=== PATIENT | male | born 1930 | race Caucasian/White ===

== ENCOUNTER 2017-02-20 13:30 | Emergency (ER) | payer MEDICARE, OTHER ==
[~2017-02-20] VITALS: Ht 185.4 cm; Wt 86.7 kg
[~2017-02-20 13:30] MED LIST: ALBU6.7H INH; ASPI325T PO; ATOR20TA PO; AZIT250T43 PO; BENZ100 PO; CARV12.52 PO; FURO20 PO; LACT PO; LISI2.5T3 PO; LORTA5 PO; MAGN500T4 PO; NIAS10004 PO; PLAV75TA PO; PRIL20CA PO; VITA200017 PO; VITA20004 PO
[2017-02-20 13:34] VITALS: BP 117/64; PULSE 79; RESP 20; TEMP 97.6; O2SAT 96
[2017-02-20] MEDS ORDERED: VITA10002 PO (13:55)
[2017-02-20] MEDS ORDERED: POTA1TAB4 PO (13:55)
[2017-02-20] MEDS ORDERED: LISI-515 PO (13:55)
[2017-02-20] MEDS ORDERED: PLAV75TA29 PO (13:55)
[2017-02-20] MEDS ORDERED: MAGN400T2 PO (13:55)
[2017-02-20] MEDS ORDERED: MAGN100T2 PO (13:55)
[2017-02-20] MEDS ORDERED: PRIL20TA2 PO (13:55)
[2017-02-20] MEDS ORDERED: POTA-163 PO (13:55)
[2017-02-20] MEDS ORDERED: ALLO300T2 PO (13:55)
[2017-02-20] MEDS ORDERED: HYDR-3516 PO (13:55)
[2017-02-20] MEDS ORDERED: ATOR20TA15 PO (13:55)
[2017-02-20] MEDS ORDERED: ASPI325T PO (13:55)
[2017-02-20] MEDS ORDERED: NIAC500T67 PO (13:55)
[2017-02-20] MEDS ORDERED: CARV12.5 PO (13:55)
[2017-02-20] MEDS ORDERED: VITA2000 PO (13:55)
[2017-02-20] MEDS ORDERED: FURO1TAB60 PO (13:55)
--- NOTE | 2017-02-20 14:01 | PD ---
HPI Chief Complaint: Musculoskeletal Complaint Time Seen by Provider: 13:45 Travel History International Travel<30 days: No Contact w/Intl Traveler<30days: No Traveled to known affect area: No History of Present Illness HPI 86-year-old male presents to the emergency room for evaluation of right scapular pain with radiation into his right shoulder and upper arm for the past 4 days. Patient states pain started after he sat on a hard chair for several hours. There is no other trauma or injury. Pain is localized to the scapula with radiation into the upper arm. It is not worse with palpation or range of motion of the right upper extremity. States the following morning his pain subsided slightly but he applied a lidocaine patch to the area and has been doing so daily since then. He has also been taking an extra aspirin every day which mildly relieved his symptoms. His pain is not severe which is why it took him several days to come in. He is prescribed hydrocodone for chronic low back pain but has not needed to take those. He denies abdominal pain, vomiting, chest pain, shortness of breath, upper extremity paresthesias. Denies history of right shoulder problems. History of cholecystectomy. PFSH Past Medical History Hx Anticoagulant Therapy: Yes Anemia: Yes Arthritis: Yes Autoimmune Disease: No Heart Rhythm Problems: Yes (hx of afib) Cancer: No Cardiac Catheterization: Yes Cardiovascular Problems: Yes High Cholesterol: Yes Chest Pain: No Congestive Heart Failure: No COPD: Yes Coronary Artery Disease: Yes Diabetes: Yes (was taking oral diabetes meds but pt's dr took him off ) Diminished Hearing: No Endocrine: Yes Gastrointestinal Disorders: Yes (HEMORRHOIDS) GERD: Yes Gout: Yes Genitourinary: Yes Hepatitis: Yes (1950'S) Herniated Disk: Yes Hypertension: Yes Immune Disorder: No Inguinal Hernia: Yes (BILATERAL) Kidney Stones: Yes Musculoskeletal: Yes Neurologic: No Psychiatric: No Reproductive: No Respiratory: Yes Myocardial Infarction: Yes (2005?) Pneumonia: Yes Renal Failure: No Shingles: Yes Sickle Cell Disease: No Sleep Apnea: No Past Surgical History Abdominal Surgery: Yes (cholecystectomy ) AICD: No Arteriovenous Shunt: No Cardiac Surgery: Yes (stents x4 2008) Cholecystectomy: Yes Coronary Stent: Yes (X4) Ear Surgery: No Endocrine Surgery: No Eye Surgery: No Genitourinary Surgery: No Gynecologic Surgery: No Insulin Pump: No Joint Replacement: No Oral Surgery: Yes (teeth extractions) Pacemaker: No Thoracic Surgery: No Tonsillectomy: Yes Other Surgery: Yes (HEMORRHOIDECTOMY) Social History Alcohol Use: Yes (RARELY) Tobacco Use: No (QUIT 1987) Substance Use: No Allergies-Medications (Allergen,Severity, Reaction): Coded Allergies: No Known Allergies (Unverified , 02/20/17) Reported Meds & Prescriptions Reported Meds & Active Scripts Active Reported Hydrocodone-Acetaminophen 5-325 mg Tab 1 Tab PO Q6H PRN K-Tab (Potassium Chloride) 20 Meq Tab 20 Meq PO 3X WEEK Potassium Chloride ER (Potassium Chloride) 20 Meq Tab 20 Meq PO DAILY Niacin (Niacinamide) 500 Mg Tablet 2,000 Mg PO DAILY Atorvastatin (Atorvastatin Calcium) 20 Mg Tab 20 Mg PO DAILY Allopurinol 300 Mg Tab 300 Mg PO DAILY Prilosec (Omeprazole Magnesium) 20 Mg Tab 1 Tab PO DAILY Magnesium Oxide 400 Mg Tab 400 Mg PO DIRECTED Plavix (Clopidogrel Bisulfate) 75 Mg Tab 75 Mg PO DAILY Vitamin B-12 (Cyanocobalamin) 1,000 Mcg Tab 1,000 Mcg PO DAILY Vitamin D3 (Cholecalciferol) 2,000 Unit Cap 2,000 Units PO DAILY Coreg (Carvedilol) 12.5 Mg Tab 12.5 Mg PO BID Aspirin 325 Mg Tab 325 Mg PO DAILY Lasix (Furosemide) 40 Mg Tab 40 Mg PO DAILY Lisinopril 20 Mg Tab 20 Mg PO DAILY Review of Systems Except as stated in HPI: all other systems reviewed are Neg Physical Exam Narrative GENERAL: Well-developed, well-nourished male in no acute distress. Afebrile. Ambulatory. SKIN: Focused skin assessment warm/dry. HEAD: Atraumatic. Normocephalic. EYES: Pupils equal and round. No scleral icterus. No injection or drainage. NECK: Trachea midline. No JVD. CARDIOVASCULAR: Regular rate and rhythm. No murmur appreciated. RESPIRATORY: No accessory muscle use. Clear to auscultation. Breath sounds equal bilaterally. GASTROINTESTINAL: Abdomen soft, non-tender, nondistended. Hepatic and splenic margins not palpable. Negative Faith sign. MUSCULOSKELETAL: No obvious deformities. No clubbing. No cyanosis. No edema. 2+ radial pulse. Radial, ulnar, and median nerves intact. Right posterior scapula nontender to palpation. Full range of motion of the right upper extremity. BACK: No CVA tenderness. No rash. No point tenderness on palpation of the spine. Data Data Last Documented VS Vital Signs Date Time Temp Pulse Resp B/P Pulse Ox O2 Delivery O2 Flow Rate FiO2 02/20/17 13:34 97.6 79 20 117/64 96 Orders Scapula (02/20/17 ) [facility] Medical Decision Making Medical Screen Exam Complete: Yes Emergency Medical Condition: Yes Medical Record Reviewed: Yes Differential Diagnosis Muscle spasm, strain, fracture, contusion, abdominal etiology unlikely, shingles Narrative Course 86-year-old male presents to the emergency room for evaluation of right scapular back pain that radiates into his right shoulder for the past 4 days. Patient denies trauma or injury. Right upper extremity is neurovascularly intact with 2+ radial pulse. Radial, ulnar, and median nerves intact. No pain with range of motion. No point tenderness to palpation of the scapula. No erythema, ecchymosis, edema, or rash noted. Patient has history of cholecystectomy and no abdominal pain, nausea, or vomiting. He is resting comfortably and in no acute distress. Lungs sounds clear and equal bilaterally. Denies chest pain or shortness of breath. Vital signs stable. Unlikely intrathoracic etiology. X-ray of the shoulder shows degenerative changes. Given patient states symptoms started after sitting for an extended period of time in a hard chair, this is likely muscular in nature. I spoke to my attending physician, Dr. Arzate, who agrees. He was reassured and told to take Tylenol for pain. Told to follow-up with a primary care physician or return for worsening symptoms. He understands and agrees to plan. Diagnosis Primary Impression: Right-sided thoracic back pain Qualified Code: M54.6 - Acute right-sided thoracic back pain Referrals: Primary Care Physician Patient Instructions: General Instructions, Shoulder Pain (ED), Thoracic Back Strain (ED) Additional Instructions: Rest and drink plenty of fluids. Take prescribed narcotic medication as directed, as needed for pain. Do not drink alcohol or drive while taking this medication. Take Tylenol as directed, as needed for pain. Apply ice to the affected area for 20 minutes at a time, as needed for pain and swelling. Follow-up with a primary care physician. Return to the emergency room for worsening symptoms. Disposition: 01 DISCHARGE HOME Condition: Stable Tracee Petersen Feb 20, 2017 14:01
--- NOTE | 2017-02-20 14:43 | RADRPT ---
EXAM DATE/TIME: 02/20/2017 14:24 [facility] COMPARISON: No previous studies available for comparison. INDICATIONS : Right shoulder pain with no known injury MEDICAL HISTORY : Diabetes mellitus type II. Myocardial infarction. Hypertension. SURGICAL HISTORY : Coronary artery stent. 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 Min imal acromial arch impingement is evident. There is no fracture. [place] is clear. Cardiac silhouette is prominent. CONCLUSION: Degenerative changes right shoulder without fracture. Seun Russell MD FACR on February 20, 2017 at 14:38 Board Certified Radiologist. This report was verified electronically.
[2017-02-20] MEDS ORDERED: BACLOFEN 10 MG TAB PO ONE (15:15)
== END 2017-02-20 15:31 | disposition home or self-care (01) ==
LOC: PHED 13:30
DX: M54.6 Pain in thoracic spine (principal); E11.9 Type 2 diabetes mellitus without complications; E78.00 Pure hypercholesterolemia, unspecified; I10 Essential (primary) hypertension; I25.10 Atherosclerotic heart disease of native coronary artery without angina pectoris; I25.2 Old myocardial infarction; I48.91 Unspecified atrial fibrillation; J44.9 Chronic obstructive pulmonary disease, unspecified; Z79.82 Long term (current) use of aspirin; Z95.5 Presence of coronary angioplasty implant and graft; Z90.49 Acquired absence of other specified parts of digestive tract
CPT/HCPCS: 73010; 99283

== ENCOUNTER 2017-04-03 15:46 | Emergency (ER) | payer MEDICARE, OTHER ==
[~2017-04-03] VITALS: Ht 185.4 cm; Wt 89.5 kg
[~2017-04-03 15:46] MED LIST changes: -ALBU6.7H INH; +ALLO300T2 PO; -ATOR20TA PO; +ATOR20TA15 PO; -AZIT250T43 PO; -BENZ100 PO; +CARV12.5 PO; -CARV12.52 PO; +FURO1TAB60 PO; -FURO20 PO; +HYDR-3516 PO; -LACT PO; +LISI-515 PO; -LISI2.5T3 PO; -LORTA5 PO; +MAGN400T2 PO; -MAGN500T4 PO; +NIAC500T67 PO; -NIAS10004 PO; -PLAV75TA PO; +PLAV75TA29 PO; +POTA-163 PO; +POTA1TAB4 PO; -PRIL20CA PO; +PRIL20TA2 PO; +VITA10002 PO; +VITA2000 PO; -VITA200017 PO; -VITA20004 PO
[2017-04-03 15:50] VITALS: BP 165/78; PULSE 67; RESP 16; TEMP 98; O2SAT 94
[2017-04-03] MEDS ORDERED: LIDOCAINE HCL 1% PF 30 ML VIAL ONE (16:40)
--- NOTE | 2017-04-03 16:55 | PD ---
HPI Chief Complaint: Musculoskeletal Complaint Time Seen by Provider: 16:31 Travel History International Travel<30 days: No Contact w/Intl Traveler<30days: No Traveled to known affect area: No History of Present Illness HPI The patient is a 86-year-old male who presents to the emergency department for right knee pain and swelling. The patient states he went to bed last night feeling well, waking this morning with some right knee swelling and pain. The pain is worse with movement and slightly alleviated at rest. The patient denies any trauma to the right knee. He does have a history of gout for which he takes allopurinol, denies any known history of pseudogout. He does take Plavix, however, denies any trauma to the right knee or history of hemarthrosis. Symptoms are mild to moderate, worse with movement, slightly alleviated at rest. He denies any redness to the right knee and denies any associated fever, chills, or sweats. PFSH Past Medical History Hx Anticoagulant Therapy: Yes Anemia: Yes Arthritis: Yes Autoimmune Disease: No Heart Rhythm Problems: Yes (hx of afib) Cancer: No Cardiac Catheterization: Yes Cardiovascular Problems: Yes High Cholesterol: Yes Chest Pain: No Congestive Heart Failure: No COPD: Yes Coronary Artery Disease: Yes Diabetes: Yes (was taking oral diabetes meds but pt's dr took him off ) Patient Takes Glucophage: No Diminished Hearing: No Endocrine: Yes Gastrointestinal Disorders: Yes (HEMORRHOIDS) GERD: Yes Gout: Yes Genitourinary: Yes Hepatitis: Yes (1949'S) Heparin Induced Thrombocytopen: No Herniated Disk: Yes Hypertension: Yes Immune Disorder: No Inguinal Hernia: Yes (BILATERAL) Implanted Vascular Access Dvce: No Kidney Stones: Yes Musculoskeletal: Yes Neurologic: No Psychiatric: No Reproductive: No Respiratory: Yes Myocardial Infarction: Yes (2004?) Pneumonia: Yes Renal Failure: No Shingles: Yes Sickle Cell Disease: No Sleep Apnea: No Past Surgical History Abdominal Surgery: Yes (cholecystectomy ) AICD: No Arteriovenous Shunt: No Cardiac Surgery: Yes (stents x4 2008) Cholecystectomy: Yes Coronary Stent: Yes (X4) Ear Surgery: No Endocrine Surgery: No Eye Surgery: No Genitourinary Surgery: No Gynecologic Surgery: No Insulin Pump: No Joint Replacement: No Neurologic Surgery: No Oral Surgery: Yes (teeth extractions) Pacemaker: No Thoracic Surgery: No Tonsillectomy: Yes Other Surgery: Yes (HEMORRHOIDECTOMY) Social History Alcohol Use: Yes (RARELY) Tobacco Use: No (QUIT 1986) Substance Use: No Allergies-Medications (Allergen,Severity, Reaction): Coded Allergies: No Known Allergies (Unverified , 02/20/17) Reported Meds & Prescriptions Reported Meds & Active Scripts Active Reported Hydrocodone-Acetaminophen 5-325 mg Tab 1 Tab PO Q6H PRN K-Tab (Potassium Chloride) 20 Meq Tab 20 Meq PO 3X WEEK Potassium Chloride ER (Potassium Chloride) 20 Meq Tab 20 Meq PO DAILY Niacin (Niacinamide) 500 Mg Tablet 2,000 Mg PO DAILY Atorvastatin (Atorvastatin Calcium) 20 Mg Tab 20 Mg PO DAILY Allopurinol 300 Mg Tab 300 Mg PO DAILY Prilosec (Omeprazole Magnesium) 20 Mg Tab 1 Tab PO DAILY Magnesium Oxide 400 Mg Tab 400 Mg PO DIRECTED Plavix (Clopidogrel Bisulfate) 75 Mg Tab 75 Mg PO DAILY Vitamin B-12 (Cyanocobalamin) 1,000 Mcg Tab 1,000 Mcg PO DAILY Vitamin D3 (Cholecalciferol) 2,000 Unit Cap 2,000 Units PO DAILY Coreg (Carvedilol) 12.5 Mg Tab 12.5 Mg PO BID Aspirin 325 Mg Tab 325 Mg PO DAILY Lasix (Furosemide) 40 Mg Tab 40 Mg PO DAILY Lisinopril 20 Mg Tab 20 Mg PO DAILY Review of Systems Except as stated in HPI: all other systems reviewed are Neg General / Constitutional: No: Fever, Chills Musculoskeletal: Positive: Edema, Pain Skin: No Rash Neurologic: Positive: Other (history of foot drop to the right leg), No: Paresthesia, Sensory Disturbance Physical Exam Narrative GENERAL: Awake, alert, pleasant 86-year-old male who appears his stated age and is in no acute respiratory distress. SKIN: Focused skin assessment warm/dry. HEAD: Atraumatic. Normocephalic. EYES: No injection or drainage. ENT: No nasal bleeding or discharge. Mucous membranes pink and moist. NECK: Trachea midline. No JVD. MUSCULOSKELETAL: The right knee is edematous compared to left with positive effusion. Patella is midline. He is able to flex the knee to 30. Positive dorsalis pedal pulses. He is able to plantarflex bilaterally, limited dorsiflexion of the right foot. No erythema noted. NEUROLOGICAL: Awake and alert. No obvious cranial nerve deficits. Motor grossly within normal limits. Normal speech. PSYCHIATRIC: Appropriate mood and affect; insight and judgment normal. Data Data Last Documented VS Vital Signs Date Time Temp Pulse Resp B/P Pulse Ox O2 Delivery O2 Flow Rate FiO2 04/03/17 15:50 98.0 67 16 165/78 94 Room Air Orders Ed Poc Ultrasound (04/03/17 ) Lidocaine Pf 1% Inj (Xylocaine-Mpf 1% In (04/03/17 16:40) Synovial Fluid Crystals (04/03/17 16:46) Synovial Fluid Glucose (04/03/17 16:46) Synovial Fluid Total Protein (04/03/17 16:46) Synovial Fl Cell Count + Diff (04/03/17 16:46) Fluid Culture And Gram Stain (04/03/17 16:46) Hari Bandage (04/03/17 16:46) Labs Laboratory Tests Test 04/03/17 16:57 Synovial Fluid Color STRAW Synovial Fluid Appearance MODERATE Synovial Fluid WBC 4900 /MM3 Synovial Fluid RBC 120 /MM3 Synovial Fluid Neutrophils 94 % Synovial Fluid Lymphocytes 1 % Synovial Fluid Monocytes 2 % Synovial Fluid Histiocytes 3 % MDM Medical Decision Making Medical Screen Exam Complete: Yes Emergency Medical Condition: Yes Medical Record Reviewed: Yes Interpretation(s) Laboratory Tests Test 04/03/17 16:57 Synovial Fluid Color STRAW Synovial Fluid Appearance MODERATE Synovial Fluid WBC 4900 /MM3 Synovial Fluid RBC 120 /MM3 Synovial Fluid Neutrophils 94 % Synovial Fluid Lymphocytes 1 % Synovial Fluid Monocytes 2 % Synovial Fluid Histiocytes 3 % Differential Diagnosis Differential diagnosis includes gout, pseudogout, septic arthritis, hemarthrosis , effusion, fracture. Narrative Course A bedside ultrasound was performed which reveals a right knee effusion. I had a discussion with the patient regarding arthrocentesis, discussed risk and benefits, he is agreeable. The right knee was draped and prepped in a normal sterile fashion, cleaned with Betadine, anesthetized 1% lidocaine, cleaned once again with Betadine. Under sterile conditions a 18-gauge needle was placed into the effusion under ultrasound guidance, I withdrew 25 cc of yellow fluid, no obvious purulence. The patient tolerated the procedure without difficulty. Synovial fluid was sent to lab for crystals, micro-, cultures, and cell count. Cell count reveals WBCs 4900, neutrophils 94%, the knee is not erythematous and he is able to flex it, I doubt septic joint. The patient will be treated for arthropathy such as gout/pseudogout. The patient be discharged home on Indocin and [place]. He is stable for outpatient follow-up. The patient agrees and understands. When the patient was reevaluated he states his pain has significantly improved since the effusion was drained. Procedures Procedure Narrative A bedside ultrasound was performed using a linear probe on the right knee which revealed a right knee effusion. The patient tolerated the procedure without difficulty and there was no obvious complications. An arthrocentesis was performed under ultrasound guidance using a linear probe. The right lateral knee was draped and prepped normal sterile fashion, cleaned with Betadine, anesthetized 1% lidocaine using a 27-gauge needle and then an 18- gauge needle was placed into the effusion under ultrasound guidance. I removed 25 cc of yellow fluid with no obvious purulence or bleeding. The patient tolerated the procedure and there was no obvious complications. The patient then had a dry sterile dressing and Hari wrap applied to the right knee. Synovial fluid was sent to lab. Diagnosis Primary Impression: Effusion, right knee Patient Instructions: General Instructions Additional Instructions: Medications as directed. Follow-up with your primary physician. Elevate, ice, Hari wrap as needed. Med/Other Pt SpecificInfo: Prescription(s) given Scripts Hydrocodone-Acetaminophen ([place])5-325 mg Tab1 Tab PO Q6H PRN (PAIN) #15 TAB Ref 0 Prov:Mook Mike MD 04/03/17 Indomethacin 25 Mg Cap25 Mg PO TID #15 CAP Ref 0 Take with food, milk, or antacids to decrease stomach adverse effects. Prov:Mook Mike MD 04/03/17 Disposition: 01 DISCHARGE HOME Condition: Stable Mook Mike MD Apr 03, 2017 16:55
[2017-04-03 17:32] LABS: WBC, SYNOVIAL FLUID 4900 /MM3 (0-200)
[2017-04-03] MEDS ORDERED: NORC5TAB PO (18:40)
[2017-04-03] MEDS ORDERED: INDO25CA PO (18:40)
[2017-04-06 23:52] LABS: TOTAL PROTEIN, SYNOVIAL FLUID 2.8 g/dL (1.0-3.0)
== END 2017-04-03 19:05 | disposition home or self-care (01) ==
LOC: PHED 15:46
DX: M25.461 Effusion, right knee (principal); E11.9 Type 2 diabetes mellitus without complications; I10 Essential (primary) hypertension; E78.00 Pure hypercholesterolemia, unspecified; I25.2 Old myocardial infarction; Z79.01 Long term (current) use of anticoagulants; Z86.2 Personal history of diseases of the blood and blood-forming organs and certain disorders involving the immune mechanism; Z87.39 Personal history of other diseases of the musculoskeletal system and connective tissue; Z86.79 Personal history of other diseases of the circulatory system; Z87.09 Personal history of other diseases of the respiratory system; Z87.19 Personal history of other diseases of the digestive system; Z87.448 Personal history of other diseases of urinary system; Z86.69 Personal history of other diseases of the nervous system and sense organs
CPT/HCPCS: 20611; 82945; 84157; 87070; 87205; 89051; 89060

== ENCOUNTER 2018-09-07 11:22 | Inpatient (IN) ==
[2018-09-07 12:16] LABS: Baso % (Auto) 0.2 % (0.0-2.0); Eos % (Auto) 0.2 % (0.0-4.0); Hematocrit 33.5 % (39.0-51.0); Lymph % (Auto) 8.1 % (9.0-44.0); Mean Corpuscular HGB Conc 32.8 % (32.0-36.0); Mean Corpuscular Hemoglobin 36.9 pg (27.0-34.0); Mean Corpuscular Volume 112.5 fL (80.0-100.0); Mean Platelet Volume 9.9 fL (7.0-11.0); Mono # (Auto) 0.9 th/mm3 (0.0-0.9); Mono % (Auto) 7.7 % (0.0-8.0); Neut # (Auto) 10.1 th/mm3 (1.8-7.7); Neut % (Auto) 83.8 % (16.0-70.0); Platelet Count 123 th/mm3 (150-450); Red Blood Count 2.98 mil/mm3 (4.50-5.90); Red Cell Distribution Width 14.5 % (11.6-17.2)
--- NOTE | 2018-09-07 12:26 | XR ---
EXAM DATE: 09/07/2018 12:22 PM EST AGE/SEX: 88 years / Male INDICATIONS: Short of breath. Sick after receiving flu shot. CLINICAL DATA: This is the patient's initial encounter. Patient reports that signs and symptoms have been present for 1 day and indicates a pain score of 0/10. MEDICAL/SURGICAL HISTORY: . Hypertension. . Eye Surgery . COMPARISON: [facility], CHEST SINGLE AP, 05/16/2016. . FINDINGS: Lungs are significant for ill-defined airspace opacity overlying the inferior right hemithorax. Left hemithorax is clear. Heart size is normal with stable tortuosity of the thoracic aorta. CONCLUSION: Concern for early pneumonia within the inferior right hemithorax. Electronically signed by: Destinee Sexton MD Board Certified Radiologist 09/07/2018 12:25 PM VERA T
[2018-09-07 12:28] LABS: Activated Partial Thrombo Time 28.6 sec (23.4-31.7); INR 1.1 Ratio; Prothrombin Time 10.8 sec (9.8-11.6)
--- NOTE | 2018-09-07 12:28 | ED ---
HPI General Chief complaint: Respiratory Symptoms Stated complaint: SOB Time Seen by Provider: 09/07/18 11:51 Source: patient Mode of arrival: ambulatory Limitations: no limitations History of Present Illness HPI narrative: 88 y/o male states he got a flu shot a couple days ago and now he is having cough, congestion and shortness of breath. He states he feels worse when he moves around. He states that he has not had a fever. He states at home he does not wear oxygen. He states in terms of his heart failure he does not feel like his legs are swollen that he knows of but he has been taking his water pill. He denies any specific pain. Onset (ago): day(s) Radiation: non-radiation Pain Consistency: constant Relieving factors: none Exacerbating factors: none Associated symptoms: Reports cough Treatments prior to arrival: Reports none Related Data Home Medications Medication Instructions Recorded Confirmed allopurinol 300 mg PO DAILY 04/09/18 09/07/18 atorvastatin [Lipitor] 20 mg PO BID 04/09/18 09/07/18 carvedilol [Coreg] 12.5 mg PO DAILY 04/09/18 09/07/18 cholecalciferol (vitamin D3) 2,000 unit PO DAILY 04/09/18 09/07/18 [Vitamin D3] clopidogrel [Plavix] 75 mg PO DAILY 04/09/18 09/07/18 furosemide [Lasix] 40 mg PO DAILY 04/09/18 09/07/18 hydrocodone-acetaminophen 1 tab PO Q6H PRN 04/09/18 09/07/18 lisinopril 20 mg PO DAILY 04/09/18 09/07/18 magnesium 400 mg PO DAILY 04/09/18 09/07/18 niacin 1,000 mg PO BID 04/09/18 09/07/18 omeprazole magnesium [Prilosec OTC] 20 mg PO DAILY 04/09/18 09/07/18 potassium chloride [K-Tab] 20 meq PO DAILY 04/09/18 09/07/18 vitamin [id number] acid 1,000 mg SUBLINGUAL DAILY 04/09/18 09/07/18 aspirin 325 mg PO DAILY 09/07/18 09/07/18 Allergies Allergy/AdvReac Type Severity Reaction Status Date / Time No Known Allergies Allergy Verified 09/07/18 11:26 Review of Systems ROS: all other systems reviewed are negative [facility] Medical History Medical History History of high cholesterol (Acute) History of hypertension (Acute) History of CA (myocardial infarction) (Acute) Surgical History Surgical History History of eye surgery (Acute) History of coronary artery stent placement (Acute) Social History Social History Substance History: No History of Abuse Second Hand Smoke Exposure: No Smoking Status: Former smoker Tobacco Type: Cigarettes How Often Do You Have a Drink Containing Alcohol: 2 to 4 times a month Recent Travel in [facility] within the Last 8 Weeks: No Recent Out of Country Travel within the Last 8 Weeks: No Immunization History Tetanus Immunization: <5 Years Exam Narrative Exam Narrative: GENERAL: 88 y/o male in no apparent distress SKIN: Focused skin assessment warm/dry. HEAD: Atraumatic. Normocephalic. EYES: Pupils equal and round. No scleral icterus. No injection or drainage. ENT: No nasal bleeding or discharge. Mucous membranes pink and moist. NECK: Trachea midline. CARDIOVASCULAR: Regular rate and rhythm. RESPIRATORY: No accessory muscle use. expiratory wheezing bilaterally. GASTROINTESTINAL: Abdomen soft, non-tender, nondistended. MUSCULOSKELETAL: No obvious deformities. No clubbing. No cyanosis. NEUROLOGICAL: Awake and alert. Motor grossly within normal limits. Normal speech. PSYCHIATRIC: Appropriate mood and affect; insight and judgment normal. Course Reevaluation(s) Reevaluation #1: Patient with unknown renal failure chronicity. With history of CHF will start slow IV fluid hydration. Given antibiotics for likely concurrent pneumonia and will admit to the hospital for further care Consultations Consultation #1: dr moulton agrees to admit Initial Documented Vital Signs Temperature 98.1 F 09/07/18 11:24 Pulse Rate 99 H 09/07/18 11:24 Respiratory Rate 24 09/07/18 11:24 Blood Pressure 117/56 L 09/07/18 11:24 Pulse Oximetry 91 L 09/07/18 11:24 Last Documented Vital Signs Temperature 98.1 F 09/07/18 11:24 Pulse Rate 88 09/07/18 12:57 Respiratory Rate 22 09/07/18 12:57 Blood Pressure 111/61 09/07/18 12:57 Pulse Oximetry 95 09/07/18 12:57 Medical Decision Making MDM Narrative Medical decision making narrative: will check labs, cxr and reeval Medical Screen Exam Complete: Yes Emergency Medical Condition: Yes Differential Diagnosis Differential Diagnosis: pneumonia, chf, anemia, renal failure Lab Data Lab results reviewed: Yes I reviewed the patient's lab results. Result diagrams: 09/07/18 12:03 09/07/18 12:03 Lab Results 09/07/18 09/07/18 09/07/18 Range/Units 12:03 12:03 12:03 WBC 12.0 H (4.0-11.0) th/mm3 RBC 2.98 L (4.50-5.90) mil/mm3 Hgb 11.0 L (13.0-17.0) gm/dL Hct 33.5 L (39.0-51.0) % MCV 112.5 H (80.0-100.0) fL MCH 36.9 H (27.0-34.0) pg MCHC 32.8 (32.0-36.0) % RDW 14.5 (11.6-17.2) % Plt Count 123 L (150-450) th/mm3 MPV 9.9 (7.0-11.0) fL Neut % (Auto) 83.8 H (16.0-70.0) % Lymph % (Auto) 8.1 L (9.0-44.0) % Johnson % (Auto) 7.7 (0.0-8.0) % Eos % (Auto) 0.2 (0.0-4.0) % Baso % (Auto) 0.2 (0.0-2.0) % Neut # (Auto) 10.1 H (1.8-7.7) th/mm3 Lymph # (Auto) 1.0 (1.0-4.8) th/mm3 Johnson # (Auto) 0.9 (0.0-0.9) th/mm3 Eos # (Auto) 0.0 (0.0-0.4) th/mm3 Baso # (Auto) 0.0 (0.0-0.2) th/mm3 WBC Differential . Differential Comment Auto diff final PT 10.8 (9.8-11.6) sec INR 1.1 Ratio APTT 28.6 (23.4-31.7) sec Sodium 140 (136-145) meq/L Potassium 4.5 (3.5-5.1) meq/L Chloride 110 H (98-107) meq/L Carbon Dioxide 19.5 L (21.0-32.0) meq/L Anion Gap 11 (5-15) meq/L BUN 47 H (7-18) mg/dL Creatinine 2.04 H (0.60-1.30) mg/dL Estimated GFR 31 L (>89) mL/min Random Glucose 134 H (74-106) mg/dL Lactic Acid (0.4-2.0) mmol/L Calcium 9.5 (8.5-10.1) mg/dL Magnesium 1.3 L (1.5-2.5) mg/dL Total Bilirubin 0.6 (0.2-1.0) mg/dL AST 22 (15-37) U/L ALT 14 (12-78) U/L Alkaline Phosphatase 95 (45-117) U/L Total Creatine Kinase 80 (39-308) U/L Troponin I Less than 0.02 L (0.02-0.05) ng/mL B-Natriuretic Peptide (0-100) pg/mL Total Protein 8.0 (6.4-8.2) g/dL Albumin 3.2 L (3.4-5.0) g/dL Urine Color (Yellw/Straw) Urine Clarity (Clear) Urine pH (5.0-8.5) Ur Specific [place] (1.002-1.035) Urine Protein (Neg-Trace) mg/dL Urine Glucose (UA) (Negative) mg/dL Urine Ketones (Negative) mg/dL Urine Occult Blood (Negative) Urine Nitrate (Negative) Urine Bilirubin (Negative) Urine Urobilinogen (Less than 2) mg/dL Ur Leukocyte Esterase (Negative) Urine RBC (0-3) /hpf Urine WBC (0-5) /hpf Hyaline Casts (0-3) /lpf Micro UA Comment Ur Microscopic Review Urine Culture Comments 09/07/18 09/07/18 09/07/18 Range/Units 12:03 12:03 13:10 WBC (4.0-11.0) th/mm3 RBC (4.50-5.90) mil/mm3 Hgb (13.0-17.0) gm/dL Hct (39.0-51.0) % MCV (80.0-100.0) fL MCH (27.0-34.0) pg MCHC (32.0-36.0) % RDW (11.6-17.2) % Plt Count (150-450) th/mm3 MPV (7.0-11.0) fL Neut % (Auto) (16.0-70.0) % Lymph % (Auto) (9.0-44.0) % Johnson % (Auto) (0.0-8.0) % Eos % (Auto) (0.0-4.0) % Baso % (Auto) (0.0-2.0) % Neut # (Auto) (1.8-7.7) th/mm3 Lymph # (Auto) (1.0-4.8) th/mm3 Johnson # (Auto) (0.0-0.9) th/mm3 Eos # (Auto) (0.0-0.4) th/mm3 Baso # (Auto) (0.0-0.2) th/mm3 WBC Differential Differential Comment PT (9.8-11.6) sec INR Ratio APTT (23.4-31.7) sec Sodium (136-145) meq/L Potassium (3.5-5.1) meq/L Chloride (98-107) meq/L Carbon Dioxide (21.0-32.0) meq/L Anion Gap (5-15) meq/L BUN (7-18) mg/dL Creatinine (0.60-1.30) mg/dL Estimated GFR (>89) mL/min Random Glucose (74-106) mg/dL Lactic Acid 0.8 (0.4-2.0) mmol/L Calcium (8.5-10.1) mg/dL Magnesium (1.5-2.5) mg/dL Total Bilirubin (0.2-1.0) mg/dL AST (15-37) U/L ALT (12-78) U/L Alkaline Phosphatase (45-117) U/L Total Creatine Kinase (39-308) U/L Troponin I (0.02-0.05) ng/mL B-Natriuretic Peptide 45 (0-100) pg/mL Total Protein (6.4-8.2) g/dL Albumin (3.4-5.0) g/dL Urine Color Yellow (Yellw/Straw) Urine Clarity Hazy H (Clear) Urine pH 5.0 (5.0-8.5) Ur Specific [place] 1.017 (1.002-1.035) Urine Protein Negative (Neg-Trace) mg/dL Urine Glucose (UA) Negative (Negative) mg/dL Urine Ketones Trace H (Negative) mg/dL Urine Occult Blood Negative (Negative) Urine Nitrate Negative (Negative) Urine Bilirubin Negative (Negative) Urine Urobilinogen Less than 2 (Less than 2) mg/dL Ur Leukocyte Esterase Negative (Negative) Urine RBC 1 (0-3) /hpf Urine WBC 3 (0-5) /hpf Hyaline Casts 49 (0-3) /lpf Micro UA Comment Culture not ind Ur Microscopic Review Not Reportable Urine Culture Comments Culture not ind Imaging Data Attestation: I personally reviewed and interpreted this imaging study as follows : Radiologist's impression: Chest X-Ray 09/07/18 11:58 CONCLUSION: Concern for early pneumonia within the inferior right hemithorax. Discharge Plan Discharge Disposition Patient Disposition: ED Admit(ED Internal Use Only) Discharge Order Discharge Orders: ED Use Only Admit Order (Routine); Ordered 09/07/18 Ordered By: Sonam Dominguez Discharge Details Diagnosis: Pneumonia, Renal failure Physicians Team ED Provider: Sonam Dominguez Primary Care Provider: Jessika Foley Rxs /Orders / Referrals /Forms Prescriptions: No Action furosemide [Lasix] 40 mg Tablet 40 mg PO DAILY RF: 0 atorvastatin [Lipitor] 20 mg Tablet 20 mg PO BID RF: 0 carvedilol [Coreg] 12.5 mg Tablet 12.5 mg PO DAILY RF: 0 hydrocodone-acetaminophen 5-325 mg Tablet 1 tab PO Q6H PRN (Reason: Acute Pain) RF: 0 lisinopril 20 mg Tablet 20 mg PO DAILY RF: 0 clopidogrel [Plavix] 75 mg Tablet 75 mg PO DAILY RF: 0 allopurinol 300 mg Tablet 300 mg PO DAILY RF: 0 magnesium 200 mg Tablet 400 mg PO DAILY RF: 0 omeprazole magnesium [Prilosec OTC] 20 mg Tablet,Delayed Release (Dr/Ec) 20 mg PO DAILY RF: 0 cholecalciferol (vitamin D3) [Vitamin D3] 2,000 unit Capsule 2,000 unit PO DAILY RF: 0 niacin 1,000 mg Tablet Extended Release 1,000 mg PO BID RF: 0 potassium chloride [K-Tab] 20 mEq Tablet Extended Release 20 meq PO DAILY RF: 0 vitamin [id number]-[id number] acid 1,000-400 mcg Lozenge 1,000 mg Sublingual DAILY RF: 0 aspirin 325 mg Tablet,Delayed Release (Dr/Ec) 325 mg PO DAILY RF: 0 Discharge Interventions Interventions: Vital Signs Last Done: 09/07/18 12:57 Status ED Status: Admitted Patient
[2018-09-07] MEDS ORDERED: Azithromycin Inj 500 MG in Sodium Chlor 0.9% Inj 250 ML IV.SIG ONE (12:35)
[2018-09-07 12:38] LABS: Alanine Aminotransferase 14 U/L (12-78); Albumin 3.2 g/dL (3.4-5.0); Anion Gap 11 meq/L (5-15); Aspartate Aminotransferase 22 U/L (15-37); Blood Urea Nitrogen 47 mg/dL (7-18); Calcium 9.5 mg/dL (8.5-10.1); Carbon Dioxide 19.5 meq/L (21.0-32.0); Chloride 110 meq/L (98-107); Glomerular Filtration Rate 31 mL/min (>89); Glucose,Random 134 mg/dL (74-106); Magnesium 1.3 mg/dL (1.5-2.5); Sodium 140 meq/L (136-145)
[2018-09-07 12:39] LABS: Potassium 4.5 meq/L (3.5-5.1)
[2018-09-07 12:57] LABS: Alkaline Phosphatase 95 U/L (45-117)
[2018-09-07 12:59] LABS: Creatine Kinase 80 U/L (39-308)
[2018-09-07] MEDS ORDERED: Sodium Chlor 0.9% Inj 500 ML IV.SIG SCH (13:00)
[2018-09-07 13:31] LABS: Bilirubin,Urine Negative (Negative); Clarity,Urine Hazy (Clear); Color,Urine Yellow (Yellw/Straw); Glucose,Urine (UA) Negative (Negative); Hyaline Casts,Urine 49 /lpf (0-3); Leukocyte Esterase,Urine Negative (Negative); Nitrite,Urine Negative (Negative); Specific Gravity,Urine 1.017 (1.002-1.035)
[2018-09-07] MEDS ORDERED: Acetaminophen 325 MG Tablet PO PRN (13:40)
[2018-09-07] MEDS ORDERED: Sod Chloride 0.9% Inj 1,000 ML IV.CONT SCH (13:45)
--- NOTE | 2018-09-07 13:53 | P.HPIM ---
History of Present Illness Primary Care Physician: Jessika Foley MD Chief Complaint: Shortness of breath History of Present Illness: The patient is an 88-year-old male with a past medical history of CHF and CAD who is presenting to the hospital with increasing shortness of breath. The patient states that on Saturday he received a flu shot and after that he developed shortness of breath. He said he went to a meeting and he felt like he was getting worse. He endorsed feeling tired, short of breath, he also complained of a cough with congestion that was difficult to spit up. He said he went to bed. He then tried to eat something but had decreased appetite. He was able to drink water. He then went back to bed and stayed in bed because he was feeling very tired. The patient stated that he was short of breath constantly and had worsening shortness of breath with minimal activity such as bending over in the shower to clean his feet. He denied any associated chest pain. He denied any fevers. He decided to come into the hospital because he felt his symptoms were progressive. Inpatient Certification Inpatient Certification: I certify that the inpatient services were ordered in accordance with Medicare regulations governing the order. This includes certification that hospital inpatient services are reasonable and necessary and in the case of services not specified as inpatient-only under 42 CFR 419.22(n), that they are appropriately provided as inpatient services in accordance to with the 2-midnight benchmark under 43 CFR 412.3(e) Estimated Total Length of Stay (Days): 2 Plans for Post Hospital Care: Home Review of Systems Review of Systems: all other systems reviewed are negative [facility] Medical History Medical History History of high cholesterol (Acute) History of hypertension (Acute) CHF (congestive heart failure) (Acute) DM (diabetes mellitus) (Acute) History of DC (myocardial infarction) (Acute) Surgical History Surgical History History of eye surgery (Acute) History of coronary artery stent placement (Acute) Previous back surgery (Acute) Status post bilateral hernia repair (Acute) Family History Family History Other Cancer Social History Social History Substance History: No History of Abuse Second Hand Smoke Exposure: No Smoking Status: Former smoker Tobacco Type: Cigarettes How Often Do You Have a Drink Containing Alcohol: 2 to 4 times a month Recent Travel in [place] within the Last 8 Weeks: No Recent Out of Country Travel within the Last 8 Weeks: No Immunization History Tetanus Immunization: <5 Years Medications and Allergies Allergies Allergy/AdvReac Type Severity Reaction Status Date / Time No Known Allergies Allergy Verified 09/07/18 11:26 Home Medications Medication Instructions Recorded Confirmed Type allopurinol 300 mg PO DAILY 04/09/18 09/07/18 History atorvastatin [Lipitor] 20 mg PO BID 04/09/18 09/07/18 History carvedilol [Coreg] 12.5 mg PO DAILY 04/09/18 09/07/18 History cholecalciferol (vitamin D3) 2,000 unit PO DAILY 04/09/18 09/07/18 History [Vitamin D3] clopidogrel [Plavix] 75 mg PO DAILY 04/09/18 09/07/18 History furosemide [Lasix] 40 mg PO DAILY 04/09/18 09/07/18 History hydrocodone-acetaminophen 1 tab PO Q6H PRN 04/09/18 09/07/18 History lisinopril 20 mg PO DAILY 04/09/18 09/07/18 History magnesium 400 mg PO DAILY 04/09/18 09/07/18 History niacin 1,000 mg PO BID 04/09/18 09/07/18 History omeprazole magnesium [Prilosec OTC] 20 mg PO DAILY 04/09/18 09/07/18 History potassium chloride [K-Tab] 20 meq PO DAILY 04/09/18 09/07/18 History vitamin [id number] acid 1,000 mg SUBLINGUAL DAILY 04/09/18 09/07/18 History aspirin 325 mg PO DAILY 09/07/18 09/07/18 History Active Medications: Active Medications Aspirin (Ecotrin) 325 mg PO DAILY [facility] Atorvastatin Calcium (Lipitor) 20 mg PO BID [facility] Carvedilol (Coreg) 12.5 mg PO DAILY [facility] Clopidogrel Bisulfate (Plavix) 75 mg PO DAILY [facility] Magnesium Sulfate/Dextrose (Magnesium Sulfate 1 Gm/D5w 100 Ml Premix) 100 mls @ 100 mls/hr IV.SIG Q1H [facility] Stop: 09/07/18 15:36 Non-Formulary Medication (Magnesium [Magnesium]) 400 mg PO DAILY [facility] Non-Formulary Medication (Omeprazole Magnesium [Prilosec Otc]) 20 mg PO DAILY [facility] Vitamin D (Vitamin D3) 2,000 unit PO DAILY [facility] Physical Exam Vital signs: Vital Signs 09/07/18 11:24 09/07/18 11:26 09/07/18 11:50 Temperature 98.1 F Pulse Rate 99 H 92 H Respiratory Rate 24 24 Blood Pressure 117/56 L 112/68 Pulse Oximetry 91 L 94 L 95 09/07/18 11:58 09/07/18 12:57 09/07/18 13:42 Temperature Pulse Rate 84 88 84 Respiratory Rate 22 20 Blood Pressure 111/61 121/67 Pulse Oximetry 94 L 95 97 Intake & Output 09/06/18 09/07/18 09/07/18 18:59 06:59 18:59 Intake Total 500 / 500 Balance 500 / 500 Weight 86.183 kg Intake: IV 500 / 500 NS Inj 500 ML @ 1000 mls/hr IV. 500 / 500 SIG BOLUS [facility] Rx#:[id number] Narrative: GENERAL: No apparent distress. SKIN: Focused skin assessment warm/dry. HEAD: Atraumatic. Normocephalic. EYES: Pupils equal and round. No scleral icterus. No injection or drainage. ENT: No nasal bleeding or discharge. Mucous membranes pink and moist. NECK: Trachea midline. CARDIOVASCULAR: Regular rate and rhythm. No murmurs appreciated. RESPIRATORY: No accessory muscle use. Mild expiratory wheezing bilaterally. GASTROINTESTINAL: Abdomen soft, non-tender, nondistended. MUSCULOSKELETAL: No obvious deformities. No clubbing. No cyanosis. No edema. NEUROLOGICAL: Awake and alert. Motor grossly within normal limits. Normal speech. PSYCHIATRIC: Appropriate mood and affect; insight and judgment normal. Results Labs CBC & Chem 7: 09/07/18 12:03 09/07/18 12:03 Imaging Impressions Chest X-Ray 09/07/18 11:58 CONCLUSION: Concern for early pneumonia within the inferior right hemithorax. Caprini VTE Risk Assessment Caprini VTE Risk Assessment: Moderate/High Risk (score >= 2) Caprini Risk Assessment Model: Point Value = 1 Point Value = 2 Point Value = 3 Point Value = 5 Age 41-60 Minor surgery BMI > 25 kg/m2 Swollen legs Varicose veins or History of unexplained or recurrent spontaneous Oral contraceptives or hormone replacement Sepsis (< 1 month) Serious lung disease, including pneumonia (< 1 month) Abnormal pulmonary function Acute myocardial infarction Congestive heart failure (< 1 month) History of inflammatory bowel disease Medical patient at bed rest Age 61-74 Arthroscopic surgery Major open surgery (> 45 min) Laparoscopic surgery (> 45 min) Malignancy Confined to bed (> 72 hours) Immobilizing plaster cast Central venous access Age >= 75 History of VTE Family history of VTE Factor V Leiden Prothrombin [id number] Lupus anticoagulant Anticardiolipin antibodies Elevated serum homocysteine Heparin-induced thrombocytopenia Other congenital or acquired thrombophilia Stroke (< 1 month) Elective arthroplasty Hip, pelvis, or leg fracture Acute spinal cord injury (< 1 month) Prophylaxis Regimen: Total Risk Factor Score Risk Level Prophylaxis Regimen 0-1 Low Early ambulation 2 Moderate Order ONE of the following: *Sequential Compression Device (SCD) *Heparin 5000 units SQ BID 3-4 Higher Order ONE of the following medications: *Heparin 5000 units SQ TID *Enoxaparin/Lovenox 40 mg SQ daily (WT < 150 kg, CrCl > 30 mL/min) *Enoxaparin/Lovenox 30 mg SQ daily (WT < 150 kg, CrCl > 10-29 mL/min) *Enoxaparin/Lovenox 30 mg SQ BID (WT < 150 kg, CrCl > 30 mL/min) AND/OR *Sequential Compression Device (SCD) 5 or more Highest Order ONE of the following medications: *Heparin 5000 units SQ TID (Preferred with Epidurals) *Enoxaparin/Lovenox 40 mg SQ daily (WT < 150 kg, CrCl > 30 mL/min) *Enoxaparin/Lovenox 30 mg SQ daily (WT < 150 kg, CrCl > 10-29 mL/min) *Enoxaparin/Lovenox 30 mg SQ BID (WT < 150 kg, CrCl > 30 mL/min) AND *Sequential Compression Device (SCD) Assessment and Plan Plan Acute respiratory failure/CAP The pt has been having increasing shortness of breath, a cough and required oxygen in the ED. Imaging with concern for pneumonia. -continue IV ceftriaxone and azithromycin. -sputum culture. Follow blood cultures. -oxygen and nebs as needed. Walk test prior to discharge. -incentive spirometry. -PT eval. Acute renal failure Likely pre-renal s/t diuretics. -hold diuresis. -gentle IVFs. -follow BMP. CHF/CAD Appears euvolemic at this time. No complaints of chest pain. -hold diuretics. -continue cardiac regimen. Hypomagnesemia Mag level 1.3. -replete IV and monitor. -continue home PO regimen. DM Stable. -insulin sliding scale. PPx: Heparin
[2018-09-07] MEDS ORDERED: Dextrose 50% in Water 50 ML Vial IV.PUSH PRN (14:01)
[2018-09-07] MEDS: Mag Sulf 1 gm/100 ml Premix 100 ML IV.SIG SCH ×2 (18:42→18:44)
[2018-09-07] MEDS: Insulin NovoLOG Aspart Correctional Sugar Inj SQ SCH ×2 (18:43→21:41)
[2018-09-07] MEDS: Senna/Docusate Sodium 8.6/50 MG Tablet PO SCH (21:24)
[2018-09-08 06:18] LABS: Baso % (Auto) 0.3 % (0.0-2.0); Eos # (Auto) 0.1 th/mm3 (0.0-0.4); Eos % (Auto) 0.8 % (0.0-4.0); Hematocrit 30.8 % (39.0-51.0); Hemoglobin 10.1 gm/dL (13.0-17.0); Lymph # (Auto) 0.9 th/mm3 (1.0-4.8); Lymph % (Auto) 8.9 % (9.0-44.0); Mean Corpuscular HGB Conc 32.9 % (32.0-36.0); Mean Corpuscular Hemoglobin 36.8 pg (27.0-34.0); Mean Corpuscular Volume 111.6 fL (80.0-100.0); Mean Platelet Volume 9.4 fL (7.0-11.0); Mono # (Auto) 0.6 th/mm3 (0.0-0.9); Mono % (Auto) 6.6 % (0.0-8.0); Neut # (Auto) 8.1 th/mm3 (1.8-7.7); Neut % (Auto) 83.4 % (16.0-70.0); Platelet Count 118 th/mm3 (150-450); Red Blood Count 2.76 mil/mm3 (4.50-5.90); Red Cell Distribution Width 14.4 % (11.6-17.2); White Blood Count 9.7 th/mm3 (4.0-11.0)
[2018-09-08 06:48] LABS: Albumin 2.8 g/dL (3.4-5.0); Anion Gap 8 meq/L (5-15); Aspartate Aminotransferase 27 U/L (15-37); Blood Urea Nitrogen 37 mg/dL (7-18); Carbon Dioxide 22.7 meq/L (21.0-32.0); Chloride 115 meq/L (98-107); Glomerular Filtration Rate 55 mL/min (>89); Glucose,Random 108 mg/dL (74-106); Potassium 4.2 meq/L (3.5-5.1); Sodium 146 meq/L (136-145)
[2018-09-08 06:51] LABS: Alanine Aminotransferase 20 U/L (12-78); Alkaline Phosphatase 89 U/L (45-117); Total Protein 7.2 g/dL (6.4-8.2)
[2018-09-08] MEDS: Insulin NovoLOG Aspart Correctional Sugar Inj SQ SCH ×4 (07:49→20:03)
[2018-09-08] MEDS: Heparin - SQ 10,000 UNITS/ML Vial SQ SCH ×4 (10:23→23:48)
[2018-09-08] MEDS: Senna/Docusate Sodium 8.6/50 MG Tablet PO SCH ×2 (10:24→20:03)
[2018-09-08] MEDS: Carvedilol 12.5 MG Tablet PO SCH (10:24)
[2018-09-08] MEDS: Magnesium Oxide 400 MG Tablet PO SCH (10:24)
[2018-09-08] MEDS: Pantoprazole Sodium 20 MG DR Tablet PO SCH (10:24)
[2018-09-08] MEDS: Azithromycin Inj 500 MG in Sodium Chlor 0.9% Inj 250 ML IV.SIG SCH (14:11)
--- NOTE | 2018-09-08 15:00 | P.PNIM ---
Subjective Interval history: Follow-up visit pneumonia Patient is resting in bed. He reports significant improvement in his shortness of breath since admission. He states he was able to ambulate with assistance of PT and a cane down the hallway. He tolerated this well. He reports minimal dyspnea with exertion. Denies chest pain, palpitations, fevers or chills. Endorses a cough with small amount of phlegm production after coughing hard a few times. Physical Exam Vital signs: Vital Signs 09/07/18 16:00 09/07/18 20:00 09/08/18 00:00 Temperature 97.4 F L 97.6 F 97.8 F Pulse Rate 85 73 73 Respiratory Rate 20 17 17 Blood Pressure 119/65 111/58 L 104/53 L Pulse Oximetry 94 L 95 97 09/08/18 07:35 09/08/18 08:00 09/08/18 10:25 Temperature 98.3 F Pulse Rate 91 H Respiratory Rate 20 20 Blood Pressure 117/68 Pulse Oximetry 92 L 95 95 09/08/18 11:30 Temperature 98.1 F Pulse Rate 81 Respiratory Rate 20 Blood Pressure 123/69 Pulse Oximetry 91 L Intake & Output 09/07/18 09/08/18 09/08/18 18:59 06:59 18:59 Intake Total 850 / 850 100 / 100 Balance 850 / 850 100 / 100 Weight 86.183 kg 86.3 kg Intake: IV 850 / 850 100 / 100 NS Inj 1,000 ML @ 75 mls/hr IV. 0 / 0 CONT .[id number] [facility] Rx#:[id number] Azithromycin Inj 500 MG In NS 250 / 250 Inj 250 ML @ 250 mls/hr IV.SIG ONCE ONE Rx#:[id number] NS Inj 500 ML @ 1000 mls/hr IV. 500 / 500 SIG BOLUS [facility] Rx#:[id number] Rocephin Inj 1,000 MG In NS Inj 100 / 100 100 ML @ 200 mls/hr IV.SIG ONCE ONE Rx#:[id number] Other: # Voids 2 # Bowel Movements 1 Weight On Admission 86.3 kg Narrative: GENERAL: No apparent distress. SKIN: Focused skin assessment warm/dry. HEAD: Atraumatic. Normocephalic. EYES: Pupils equal and round. No scleral icterus. No injection or drainage. ENT: No nasal bleeding or discharge. Mucous membranes pink and moist. NECK: Trachea midline. CARDIOVASCULAR: Regular rate and rhythm. No murmurs appreciated. RESPIRATORY: No accessory muscle use. Mild expiratory wheezing bilaterally. GASTROINTESTINAL: Abdomen soft, non-tender, nondistended. MUSCULOSKELETAL: No obvious deformities. No clubbing. No cyanosis. No edema. NEUROLOGICAL: Awake and alert. Motor grossly within normal limits. Normal speech. PSYCHIATRIC: Appropriate mood and affect; insight and judgment normal. Results Labs CBC & Chem 7: 09/08/18 05:52 09/08/18 05:52 Labs: Microbiology 09/07/18 12:30 Blood - Peripheral Aerobic Blood Culture - Preliminary No growth in 1 day 09/07/18 12:30 Blood - Peripheral Anaerobic Blood Culture - Preliminary No growth in 1 day 09/07/18 12:45 Blood - Peripheral Aerobic Blood Culture - Preliminary No growth in 1 day 09/07/18 12:45 Blood - Peripheral Anaerobic Blood Culture - Preliminary No growth in 1 day 09/07/18 14:00 Sputum - Expectorated Sputum Gram Stain - Final 09/07/18 12:10 Nasal Wash Influenza Types A,B Antigen - Final Negative for FLU A and B antigen Infection due to influenza A or B cannot be ruled out since the antigen present in the sample may be below the detection limit of the test. Assessment and Plan Plan The patient is an 88-year-old male with a past medical history of CHF and CAD who presented to the hospital with increasing shortness of breath. Acute respiratory failure/CAP The pt has been having increasing shortness of breath, a cough and required oxygen in the ED. Imaging with concern for pneumonia. -continue IV ceftriaxone and azithromycin. -sputum culture. Blood cultures w/ no growth after 1 day. -oxygen and nebs as needed. Walk test prior to discharge. -incentive spirometry -PT eval/treat Acute renal failure Likely pre-renal s/t diuretics. -improved s/p IV fluid hydration -hold diuresis. -gentle IVFs. -follow BMP. CHF/CAD Appears euvolemic at this time. No complaints of chest pain. -hold diuretics. -continue cardiac regimen. Hypomagnesemia Mag level 1.3. -replete IV and monitor. -continue home PO regimen. DM Stable. -insulin sliding scale. MDM: self Code: Full GI ppx: PPI DVT ppx: Heparin Subcu Discussed with: RN, patient Dispo: Home likely tomorrow if patients symptoms continue to improve. Progress Note: Quality VTE Deep Vein Thrombosis/Pulmonary Embolism Present on Admission: No
--- NOTE | 2018-09-08 23:36 | ECG ---
Date Performed: 09/07/2018 Time Performed: 11:47:03 PTAGE: 88 years EKG: Sinus rhythm WITH OCCASIONAL SUPRAVENTRICULAR PREMATURE COMPLEXES LEFT BUNDLE BRANCH BLOCK ABNORMAL ECG NO PREVIOUS TRACING DOCTOR: Maris Adams Interpretating Date/Time 09/08/2018 23:33:25
[2018-09-09] MEDS: Heparin - SQ 10,000 UNITS/ML Vial SQ SCH (06:33)
[2018-09-09] MEDS: Senna/Docusate Sodium 8.6/50 MG Tablet PO SCH (08:20)
[2018-09-09] MEDS: Carvedilol 12.5 MG Tablet PO SCH (08:20)
[2018-09-09] MEDS: Magnesium Oxide 400 MG Tablet PO SCH (08:21)
[2018-09-09] MEDS: Pantoprazole Sodium 20 MG DR Tablet PO SCH (08:21)
[2018-09-09] MEDS: Insulin NovoLOG Aspart Correctional Sugar Inj SQ SCH ×2 (08:22→13:11)
[2018-09-09 12:27] LABS: Baso % (Auto) 0.4 % (0.0-2.0); Eos # (Auto) 0.1 th/mm3 (0.0-0.4); Eos % (Auto) 1.3 % (0.0-4.0); Hematocrit 28.8 % (39.0-51.0); Hemoglobin 9.8 gm/dL (13.0-17.0); Lymph # (Auto) 0.8 th/mm3 (1.0-4.8); Lymph % (Auto) 11.8 % (9.0-44.0); Mean Corpuscular HGB Conc 34.1 % (32.0-36.0); Mean Corpuscular Hemoglobin 37.4 pg (27.0-34.0); Mean Corpuscular Volume 109.6 fL (80.0-100.0); Mean Platelet Volume 9.3 fL (7.0-11.0); Mono # (Auto) 0.5 th/mm3 (0.0-0.9); Mono % (Auto) 7.9 % (0.0-8.0); Neut # (Auto) 5.1 th/mm3 (1.8-7.7); Neut % (Auto) 78.6 % (16.0-70.0); Platelet Count 125 th/mm3 (150-450); Red Blood Count 2.63 mil/mm3 (4.50-5.90); Red Cell Distribution Width 14.5 % (11.6-17.2); White Blood Count 6.5 th/mm3 (4.0-11.0)
[2018-09-09 12:57] LABS: Calcium 9.2 mg/dL (8.5-10.1); Carbon Dioxide 23.8 meq/L (21.0-32.0); Potassium 3.9 meq/L (3.5-5.1)
[2018-09-09] MEDS: Azithromycin Inj 500 MG in Sodium Chlor 0.9% Inj 250 ML IV.SIG SCH (13:10)
--- NOTE | 2018-09-09 13:37 | P.DS ---
DS: Providers Date of admission: 09/07/18 13:29 Primary care physician: Jessika Foley MD Anticipated date of discharge: 09/09/18 Brief History from admission: The patient is an 88-year-old male with a past medical history of CHF and CAD who is presenting to the hospital with increasing shortness of breath. The patient states that on Saturday he received a flu shot and after that he developed shortness of breath. He said he went to a meeting and he felt like he was getting worse. He endorsed feeling tired, short of breath, he also complained of a cough with congestion that was difficult to spit up. He said he went to bed. He then tried to eat something but had decreased appetite. He was able to drink water. He then went back to bed and stayed in bed because he was feeling very tired. The patient stated that he was short of breath constantly and had worsening shortness of breath with minimal activity such as bending over in the shower to clean his feet. He denied any associated chest pain. He denied any fevers. He decided to come into the hospital because he felt his symptoms were progressive. DS: Summary Patient was treated for community acquired pneumonia with antibiotics Azithromycin and Ceftriaxone. He also received duonebs and supplemental O2 with significant improvement in his symptoms. Blood cultures remained negative. Influenza A&B antigen screen were negative. Patients sputum culture grew M. catarrahalis. Patient requested to be discharged home as he has a cat at home that is diabetic and required insulin twice daily. Patient states he does not have anyone else who would be able to check on his cat. Patient's O2 saturations remained greater than 92% on room air. He reported minimal coughing with small amount of yellow sputum production. No chest pain, shortness of breath, wheezing or dyspnea on exertion were reported on day of discharge. Patient was hemodynamically stable. Patient was educated to return to ED immediately or call 911 if he developed chest pain or worsening shortness of breath. Time Spent with Patient Total time spent providing and/or coordinating discharge services: Less than 30 minutes Status at Discharge Functional status at discharge: uses cane/walker Overall status at discharge: patient is progressing back to baseline Quality: VTE Deep Vein Thrombosis/Pulmonary Embolism Present on Admission: No Exam Narrative Exam Narrative: GENERAL: elderly male, pleasant, AAOx3, no acute distress SKIN: warm and dry HEAD: normocephalic, atraumatic EYES: No scleral icterus. No injection or drainage. NECK: Supple, trachea midline. No JVD or lymphadenopathy. CARDIOVASCULAR: Regular rate and rhythm without murmurs, gallops, or rubs. RESPIRATORY: Breath sounds equal bilaterally. No accessory muscle use. GASTROINTESTINAL: Abdomen soft, non-tender, nondistended. MUSCULOSKELETAL: No cyanosis, or edema. Results Labs on day of discharge: Labs from last 24 hours 09/09/18 09/09/18 09/09/18 12:10 12:10 11:10 WBC 6.5 RBC 2.63 L Hgb 9.8 L Hct 28.8 L MCV 109.6 H MCH 37.4 H MCHC 34.1 RDW 14.5 Plt Count 125 L MPV 9.3 Neut % (Auto) 78.6 H Lymph % (Auto) 11.8 Butler % (Auto) 7.9 Eos % (Auto) 1.3 Baso % (Auto) 0.4 Neut # (Auto) 5.1 Lymph # (Auto) 0.8 L Butler # (Auto) 0.5 Eos # (Auto) 0.1 Baso # (Auto) 0.0 WBC Differential . Differential Comment Auto diff final Sodium 146 H Potassium 3.9 Chloride 115 H Carbon Dioxide 23.8 Anion Gap 7 BUN 23 H Creatinine 0.96 Estimated GFR 74 L POC Glucose 177 H Random Glucose 151 H Calcium 9.2 09/09/18 09/08/18 08:17 19:55 WBC RBC Hgb Hct MCV MCH MCHC RDW Plt Count MPV Neut % (Auto) Lymph % (Auto) Butler % (Auto) Eos % (Auto) Baso % (Auto) Neut # (Auto) Lymph # (Auto) Butler # (Auto) Eos # (Auto) Baso # (Auto) WBC Differential Differential Comment Sodium Potassium Chloride Carbon Dioxide Anion Gap BUN Creatinine Estimated GFR POC Glucose 115 H 173 H Random Glucose Calcium Preliminary micro results at discharge 09/07/18 12:30 Aerobic Blood Culture - Preliminary Blood - Peripheral No growth in 2 days Anaerobic Blood Culture - Preliminary No growth in 2 days 09/07/18 12:45 Aerobic Blood Culture - Preliminary Blood - Peripheral No growth in 2 days Anaerobic Blood Culture - Preliminary No growth in 2 days 09/07/18 14:00 Sputum Culture - Preliminary Sputum - Expectorated Sputum gram negative rods Moraxella catarrahalis Impressions ITS Impressions Chest X-Ray 09/07/18 11:58 CONCLUSION: Concern for early pneumonia within the inferior right hemithorax. Discharge Plan Discharge Disposition Patient Disposition: Discharge Home Discharge Condition Condition: Stable Discharge Order Discharge Orders: Discharge Order (Routine); Ordered 09/09/18 Ordered By: Guerline Brand Discharge Details Anticipated Discharge Date: 09/09/18 Physicians Team ED Provider: Sonam Dominguez Primary Care Provider: Jessika Foley Attending Provider: Flora Lagunas Rxs /Orders / Referrals /Forms Prescriptions: New azithromycin 250 mg tablet 250 mg PO DAILY 3 Days Qty: 3 RF: 0 Continue furosemide [Lasix] 40 mg Tablet 40 mg PO DAILY RF: 0 atorvastatin [Lipitor] 20 mg Tablet 20 mg PO BID RF: 0 carvedilol [Coreg] 12.5 mg Tablet 12.5 mg PO DAILY RF: 0 hydrocodone-acetaminophen 5-325 mg Tablet 1 tab PO Q6H PRN (Reason: Acute Pain) RF: 0 lisinopril 20 mg Tablet 20 mg PO DAILY RF: 0 clopidogrel [Plavix] 75 mg Tablet 75 mg PO DAILY RF: 0 allopurinol 300 mg Tablet 300 mg PO DAILY RF: 0 magnesium 200 mg Tablet 400 mg PO DAILY RF: 0 omeprazole magnesium [Prilosec OTC] 20 mg Tablet,Delayed Release (Dr/Ec) 20 mg PO DAILY RF: 0 cholecalciferol (vitamin D3) [Vitamin D3] 2,000 unit Capsule 2,000 unit PO DAILY RF: 0 niacin 1,000 mg Tablet Extended Release 1,000 mg PO BID RF: 0 potassium chloride [K-Tab] 20 mEq Tablet Extended Release 20 meq PO DAILY RF: 0 vitamin U12-xlcgf acid 1,000-400 mcg Lozenge 1,000 mg Sublingual DAILY RF: 0 aspirin 325 mg Tablet,Delayed Release (Dr/Ec) 325 mg PO DAILY RF: 0 Referrals: Jessika Foley MD [Primary Care Provider] - See Instructions (Please follow up with provider within 1 week. ) Discharge Instructions Patient Printed Instructions: Pneumonia (DC) Additional Instructions: Your Health Problems: Goals to Promote Your Health: * To prevent worsening of your condition * To maintain your health at the optimal level Directions to Meet Your Goals: * Take your medications as prescribed * Follow your dietary instruction * Follow activity as directed * Keep your appointments as scheduled * Take your immunizations and boosters as scheduled * If your symptoms worsen call your PCP * If no PCP go to Urgent Care or Emergency Room Smoking is dangerous to your health. Avoid second hand smoke. You may reach the 24-hour crisis hotline for domestic abuse at . Discharge Interventions Interventions: Discharge Planning - Case Management Last Done: 09/08/18 16:59 Status ED Status: Left Department
--- NOTE | 2018-09-09 14:14 | P.DCO ---
Physical Therapy Order: Evaluate and treat, Improve ambulation and Strength and gait training Home Health Nursing Order: Medical education, Signs/symptoms of disease process and Medication education-adverse effect Case Management Consult Case Management Consult-Home Health: Yes I have seen patient Piyush Valle on 09/09/18. My clinical findings support the need for the requested home health care services because: Limited mobility due to disease progression, Limited ability to care for self and Infection with risk of complications I certify that my clinical findings support that this patient is homebound because: Unsteady gait/balance
== END 2018-09-09 14:51 | disposition home or self-care (01) | DRG 193 ==
LOC: NEPE 11:22 → NEDA 13:29 → N07 14:15
PROVIDERS: ADMIT Internal Medicine; ATTEND Internal Medicine
CPT/HCPCS: 71010; 71045; 80048; 80053; 81001; 82550; 82948; 82962; 83520; 83605; 83735; 83880; 84484; 85025; 85610; 85730; 87040; 87070; 87077; 87181; 87185; 87186; 87205; 87275; 87276; 87804; 90765; 90766; 93005; 94150; 96365; 96366; 97162; 99285; J0456; J0696; J1644; J1815; J3475; J7030; J7040; J7050